=== PATIENT | female | born 1945 | race Caucasian/White ===

== ENCOUNTER 2018-05-25 00:47 | Emergency (ER) | payer MEDICARE, MEDICAID ==
[~2018-05-25] VITALS: Ht 162.6 cm; Wt 69.8 kg
[~2018-05-25 00:47] MED LIST: NITR100C11 PO; ONDA8TAB9 PO
[2018-05-25 00:52] VITALS: BP 155/90
[2018-05-25] MEDS ORDERED: HYDR-3965 PO (01:13)
[2018-05-25] MEDS ORDERED: AMOX500C2 PO (01:13)
== END 2018-05-25 01:28 | disposition home or self-care (01) ==
LOC: ER 00:47
DX: K08.89 Other specified disorders of teeth and supporting structures (principal); K02.9 Dental caries, unspecified; J45.909 Unspecified asthma, uncomplicated; M81.0 Age-related osteoporosis without current pathological fracture
CPT/HCPCS: 99283